=== PATIENT | female | born 1975 | race Caucasian/White ===

== ENCOUNTER → 2023-05-02 12:23 | Outpatient (CLI) | payer BC, SELFPAY ==
[2023-05-06 08:46] LABS: QuantiFERON Mitogen Value >10.00 IU/mL (.); QuantiFERON TB Gold Plus Negative (Negative); QuantiFERON TB1 Ag Value 0.06 IU/mL (.); QuantiFERON TB2 Ag Value 0.11 IU/mL (.)
== END ==
PROVIDERS: Visit Provider Internal Medicine
DX: Z02.1 Encounter for pre-employment examination (principal)
CPT/HCPCS: 36415; 86480

== ENCOUNTER → 2023-10-25 07:35 | Outpatient (CLI) | payer BC, SELFPAY ==
--- NOTE | 2023-10-25 07:37 | DI.RAD.S_ITS ---
PROCEDURE: XR KNEE LT 3V INDICATIONS: knee pain TECHNIQUE: 3 views of the knee were acquired. COMPARISON: None. FINDINGS: Bones: No fractures or dislocations. No suspicious bony lesions. Soft tissues: No joint effusion. No suspicious soft tissue calcifications. IMPRESSION: No acute bony abnormality or significant effusion. If clinical symptoms persist or clinical suspicion for pathology is high, consider MRI for further evaluation. Dictated by: Carito Castro M.D. on 10/25/2023 at 8:37 Approved by: Carito Castro M.D. on 10/25/2023 at 8:38
--- NOTE | 2023-10-25 07:37 | DI.RAD.S_ITS ---
PROCEDURE: XR FOOT LT MIN 3V INDICATIONS: foot pain TECHNIQUE: 3 views of the foot were acquired. COMPARISON: None. FINDINGS: Bones: No fractures or dislocations. No suspicious bony lesions. Metatarsus adductus and hallux valgus. Mild degenerative joint disease, most pronounced at the 1st metatarsophalangeal joint. Soft tissues: No tibiotalar joint effusion. Achilles tendon appears normal. IMPRESSION: 1. No acute bony abnormality. 2. Metatarsus adductus and valgus. 3. Mild degenerative joint disease. Dictated by: Carito Castro M.D. on 10/25/2023 at 13:01 Approved by: Carito Castro M.D. on 10/25/2023 at 13:02
== END ==
PROVIDERS: Referring Provider Nurse Practitioner Family; Visit Provider Nurse Practitioner Family
DX: S89.90XA Unspecified injury of unspecified lower leg, initial encounter (principal); S99.929A Unspecified injury of unspecified foot, initial encounter; M19.072 Primary osteoarthritis, left ankle and foot; M20.12 Hallux valgus (acquired), left foot; M20.5X2 Other deformities of toe(s) (acquired), left foot; X58.XXXA Exposure to other specified factors, initial encounter
CPT/HCPCS: 73562; 73630